=== PATIENT | male | born 1960 | race Caucasian/White ===

== ENCOUNTER 2018-12-30 11:54 | Emergency (ER) | payer BC, OTHER ==
[2018-12-30] MEDS ORDERED: Sodium Chloride 0.9% 10 ML Syringe FLUSH PRN (12:16)
--- NOTE | 2018-12-30 12:39 | EDM.PDOC ---
ED HPI GENERAL MEDICAL PROBLEM - General Chief Complaint: Abdominal Pain Stated Complaint: BAD ABDOMINAL PAIN [id number] Time Seen by Provider: 12/30/18 12:25 Source of Information: Reports: Patient, RN, RN Notes Reviewed History Limitations: Reports: No Limitations - History of Present Illness INITIAL COMMENTS - FREE TEXT/NARRATIVE: Pt to ER with c/o abdominal pain. Patient states the pain began last night and has gotten worse today. Patient states the pain is an ache and it radiates into the back. Admits he still has his appendix. States he has had pancreatitis 5 years ago. Denies drinking alcohol or smoking. Denies N/V/D. Denies CP or SOB, fever or chills. States he has been on a keto diet and has had some constipation with that. Has not had a BM in 2 days. States he has lost 40 pounds since July. States yesterday he was fishing in a boat and it was windy, thinks he maybe over did it yesterday. States this morning he noticed a "lump" just under the umbilical. Patient denies ever having kidney stones or hernia in the past. States HTN and high cholesterol, denies any other health problems. Onset: Gradual Duration: Constant Location: Reports: Abdomen Quality: Reports: Ache Severity: Moderate Improves with: Reports: None Worsens with: Reports: None Associated Symptoms: Reports: No Other Symptoms Abdominal Pain Score (Numeric/FACES): 7 - Related Data Allergies Allergy/AdvReac Type Severity Reaction Status Date / Time Penicillins Allergy Hives Verified 12/30/18 12:07 Home Meds: Home Meds LORazepam [Ativan] 1 mg PO BID PRN 11/12/13 [History] Rosuvastatin [Crestor] 10 mg PO DAILY 12/30/18 [History] Past Medical History Cardiovascular History: Reports: High Cholesterol Psychiatric History: Reports: Anxiety Social & Family History - Tobacco Use Smoking Status *Q: Never Smoker - Caffeine Use Caffeine Use: Reports: Coffee - Recreational Drug Use Recreational Drug Use: No - Living Situation & Occupation Living situation: Reports: , with Family Occupation: Employed ED ROS GENERAL - Review of Systems Review Of Systems: ROS reveals no pertinent complaints other than HPI. ED EXAM, GI/ABD - Physical Exam Exam: See Below Exam Limited By: No Limitations General Appearance: Alert, WD/WN, No Apparent Distress Eyes: Bilateral: Normal Appearance, EOMI Ears: Normal External Exam, Hearing Grossly Normal Nose: Normal Inspection Throat/Mouth: Normal Inspection, Normal Voice, No Airway Compromise Head: Atraumatic, Normocephalic Neck: Normal Inspection, Supple, Non-Tender, Full Range of Motion Respiratory/Chest: No Respiratory Distress, Lungs Clear, Normal Breath Sounds, No Accessory Muscle Use, Chest Non-Tender Cardiovascular: Normal Peripheral Pulses, Regular Rate, Rhythm, No Edema, No Gallop, No JVD, No Murmur, No Rub GI/Abdominal Exam: Normal Bowel Sounds, Soft, Tender (RUQ, RLQ, umbilical), Hernia (umbilical) (Male) Exam: Deferred Rectal (Males) Exam: Deferred Back Exam: Normal Inspection, Full Range of Motion, CVA Tenderness (R) Extremities: Normal Inspection, Normal Range of Motion, Non-Tender, Normal Capillary Refill, No Pedal Edema Neurological: Alert, Oriented, CN II-XII Intact, Normal Cognition, Normal Gait, Normal Reflexes, No Motor/Sensory Deficits Psychiatric: Normal Affect, Normal Mood Skin Exam: Warm, Dry, Intact, Normal Color, No Rash Lymphatic: No Adenopathy Course - Vital Signs Last Recorded V/S: Last Vital Signs Temp 97.4 F 12/30/18 15:16 Pulse 61 12/30/18 15:16 Resp 16 12/30/18 15:16 BP 119/64 12/30/18 15:16 Pulse Ox 100 12/30/18 15:16 - Orders/Labs/Meds Orders: Active Orders 24 hr Category Date Time Status Peripheral IV Care [RC] . DIRECTED Care 12/30/18 12:17 Active Abdomen Pelvis w Cont [CT] Urgent Exams 12/30/18 13:21 Taken Peripheral IV Insertion Adult [OM.PC] Stat Oth 12/30/18 12:16 Ordered Labs: Laboratory Tests 12/30/18 12/30/18 12/30/18 Range/Units 12:19 12:19 13:07 WBC 5.6 (5.0-10.0) 10^3/uL RBC 4.46 L (4.6-6.2) 10^6/uL Hgb 13.5 L (14.0-18.0) g/dL Hct 39.0 L (40.0-54.0) % MCV 87.4 (80-100) fL MCH 30.3 (27.0-34.0) pg MCHC 34.6 (33.0-35.0) g/dL Plt Count 245 (150-450) 10^3/uL Neut % (Auto) 61.4 (42.2-75.2) % Lymph % (Auto) 27.6 (20.5-50.1) % [place] % (Auto) 9.0 H (2-8) % Eos % (Auto) 1.8 (1.0-3.0) % Baso % (Auto) 0.2 (0.0-1.0) % Sodium 137 (135-145) mmol/L Potassium 3.6 (3.6-5.0) mmol/L Chloride 103 (101-111) mmol/L Carbon Dioxide 23.0 (21.0-31.0) mmol/L Anion Gap 14.6 BUN 19 H (7-18) mg/dL Creatinine 0.9 (0.6-1.3) mg/dL Est Cr Clr Drug Dosing 96.45 mL/min Estimated GFR (MDRD) > 60 BUN/Creatinine Ratio 21.11 Glucose 114 H (74-105) mg/dL Calcium 9.2 (8.4-10.2) mg/dl Total Bilirubin 0.8 (0.2-1.0) mg/dL AST 22 (10-42) IU/L ALT 29 (10-60) IU/L Alkaline Phosphatase 64 (42-121) IU/L Total Protein 7.0 (6.7-8.2) g/dl Albumin 4.3 (3.2-5.5) g/dl Globulin 2.7 Albumin/Globulin Ratio 1.59 Amylase 36 (28-100) U/L Lipase 26 (22-51) U/L Urine Color (YELLOW) Urine Appearance (CLEAR) Urine pH (5.0-9.0) Ur Specific [place] (1.005-1.030) Urine Protein (NEGATIVE) Urine Glucose (UA) (NEGATIVE) Urine Ketones (NEGATIVE) Urine Occult Blood (NEGATIVE) Urine Nitrite (NEGATIVE) Urine Bilirubin (NEGATIVE) Urine Urobilinogen (0.2-1.0) mg/dL Ur Leukocyte Esterase (NEGATIVE) Urine Opiates Screen Negative (NEGATIVE) Ur Oxycodone Screen Negative (NEGATIVE) Urine Methadone Screen Negative (NEGATIVE) Ur Barbiturates Screen Negative (NEGATIVE) U Tricyclic Antidepress Negative (NEGATIVE) Ur Phencyclidine Scrn Negative (NEGATIVE) Ur Amphetamine Screen Negative (NEGATIVE) U Methamphetamines Scrn Negative (NEGATIVE) Urine MDMA Screen Negative (NEGATIVE) U Benzodiazepines Scrn Positive H (NEGATIVE) Urine Cocaine Screen Negative (NEGATIVE) U Marijuana (THC) Screen Negative (NEGATIVE) Ethyl Alcohol < 5 mg/dL 12/30/18 Range/Units 13:07 WBC (5.0-10.0) 10^3/uL RBC (4.6-6.2) 10^6/uL Hgb (14.0-18.0) g/dL Hct (40.0-54.0) % MCV (80-100) fL MCH (27.0-34.0) pg MCHC (33.0-35.0) g/dL Plt Count (150-450) 10^3/uL Neut % (Auto) (42.2-75.2) % Lymph % (Auto) (20.5-50.1) % [place] % (Auto) (2-8) % Eos % (Auto) (1.0-3.0) % Baso % (Auto) (0.0-1.0) % Sodium (135-145) mmol/L Potassium (3.6-5.0) mmol/L Chloride (101-111) mmol/L Carbon Dioxide (21.0-31.0) mmol/L Anion Gap BUN (7-18) mg/dL Creatinine (0.6-1.3) mg/dL Est Cr Clr Drug Dosing mL/min Estimated GFR (MDRD) BUN/Creatinine Ratio Glucose (74-105) mg/dL Calcium (8.4-10.2) mg/dl Total Bilirubin (0.2-1.0) mg/dL AST (10-42) IU/L ALT (10-60) IU/L Alkaline Phosphatase (42-121) IU/L Total Protein (6.7-8.2) g/dl Albumin (3.2-5.5) g/dl Globulin Albumin/Globulin Ratio Amylase (28-100) U/L Lipase (22-51) U/L Urine Color Yellow (YELLOW) Urine Appearance Clear (CLEAR) Urine pH 6.0 (5.0-9.0) Ur Specific [place] 1.010 (1.005-1.030) Urine Protein Negative (NEGATIVE) Urine Glucose (UA) Negative (NEGATIVE) Urine Ketones Negative (NEGATIVE) Urine Occult Blood Negative (NEGATIVE) Urine Nitrite Negative (NEGATIVE) Urine Bilirubin Negative (NEGATIVE) Urine Urobilinogen 0.2 (0.2-1.0) mg/dL Ur Leukocyte Esterase Negative (NEGATIVE) Urine Opiates Screen (NEGATIVE) Ur Oxycodone Screen (NEGATIVE) Urine Methadone Screen (NEGATIVE) Ur Barbiturates Screen (NEGATIVE) U Tricyclic Antidepress (NEGATIVE) Ur Phencyclidine Scrn (NEGATIVE) Ur Amphetamine Screen (NEGATIVE) U Methamphetamines Scrn (NEGATIVE) Urine MDMA Screen (NEGATIVE) U Benzodiazepines Scrn (NEGATIVE) Urine Cocaine Screen (NEGATIVE) U Marijuana (THC) Screen (NEGATIVE) Ethyl Alcohol mg/dL Meds: Medications Discontinued Medications Generic Name Dose Route Start Last Admin Trade Name Freq PRN Reason Stop Dose Admin Iopamidol 75 ml 12/30/18 12:57 12/30/18 14:02 Isovue-300 (61%) IVPUSH 12/30/18 12:58 75 ml ONETIME ONE Administration Sodium Chloride 10 ml 12/30/18 12:16 12/30/18 12:21 Saline Flush FLUSH 10 ml ASDIRECTED PRN Administration Keep Vein Open - Radiology Interpretation Free Text/Narrative:: Abd/Pelvis CT with contrast: FINDINGS: Lungs: Atelectatic changes and within lung bases. ABDOMEN: Liver: The liver is normal. Gallbladder and bile ducts: The gallbladder is normal. Pancreas: The pancreas is normal. Spleen: The spleen is normal. Adrenals: Normal. No mass. Kidneys and ureters: There is mild right hydronephrosis and right hydroureter present. No definite calcification within the urinary tract. Mild atrophy left kidney is present. Stomach and bowel: Normal. No obstruction. No mucosal thickening. Appendix: No evidence of appendicitis. PELVIS: Bladder: The bladder is normal. Reproductive: The prostate demonstrates mild nonspecific enlargement. The seminal vesicles are normal. ABDOMEN and PELVIS: Intraperitoneal space: No significant fluid collection. Bones/joints: The lumbar spine demonstrates mild degenerative changes at multiple levels. Soft tissues: Fat filled umbilical hernia. Vasculature: The vasculature demonstrates diffuse mild atherosclerotic calcification. Lymph nodes: There are multiple nonspecific nonpathologic but prominent lymph nodes in the mesentery. There are no mesenteric lymph nodes of pathologic dimensions. IMPRESSION: 1. There is mild right hydronephrosis and right hydroureter present. No definite calcification within the urinary tract. 2. Fat filled umbilical hernia. Thank you for allowing us to participate in the care of your patient. Dictated and Authenticated by: Bebo Haro DO 12/30/2018 2:50 PM Central Time ([place] & [place]) See rad report Departure - Departure Time of Disposition: 15:24 Disposition: Home, Self-Care 01 Condition: Fair Clinical Impression: Hydroureter Umbilical hernia Qualifiers: Obstruction and gangrene presence: without obstruction or gangrene Qualified Code(s): K42.9 - Umbilical hernia without obstruction or gangrene Hydronephrosis Qualifiers: Hydronephrosis type: unspecified Qualified Code(s): N13.30 - Unspecified hydronephrosis - Discharge Information *PRESCRIPTION DRUG MONITORING PROGRAM REVIEWED*: No *COPY OF PRESCRIPTION DRUG MONITORING REPORT IN PATIENT KELECHI: No Instructions: Umbilical Hernia, Adult, Abdominal Pain, Adult, [id number], Hydronephrosis, Umbilical Herniorrhaphy Forms: ED Department Discharge Additional Instructions: Appointment with Dr. Lester on WednesdayJanuary 09 at 11:30am Drink a lot of water Follow up with your primary care facility May use Tylenol and/or Ibuprofen as directed for pain - My Orders Last 24 Hours: My Active Orders 12/30/18 12:16 Peripheral IV Insertion Adult [OM.PC] Stat 12/30/18 12:17 Peripheral IV Care [RC] . DIRECTED 12/30/18 13:21 Abdomen Pelvis w Cont [CT] Urgent - Assessment/Plan Last 24 Hours: My Active Orders 12/30/18 12:16 Peripheral IV Insertion Adult [OM.PC] Stat 12/30/18 12:17 Peripheral IV Care [RC] . DIRECTED 12/30/18 13:21 Abdomen Pelvis w Cont [CT] Urgent
[2018-12-30 12:43] LABS: ANION GAP 14.6; CHLORIDE,CL 103 mmol/L (101-111); SODIUM,NA 137 mmol/L (135-145)
[2018-12-30] MEDS ORDERED: Iopamidol 612 MG/ML 75 ML Bottle IVPUSH ONE (12:57)
== END 2018-12-30 15:24 | disposition home or self-care (01) ==
LOC: DL.ED 11:54
DX: N13.2 Hydronephrosis with renal and ureteral calculous obstruction (principal); K42.9 Umbilical hernia without obstruction or gangrene; F41.9 Anxiety disorder, unspecified; E78.00 Pure hypercholesterolemia, unspecified; Z79.899 Other long term (current) drug therapy; Z88.0 Allergy status to penicillin
CPT/HCPCS: 36415; 74177; 80053; 80305; 81003; 82150; 83690; 85025; 99284; G0480; Q9967

== ENCOUNTER 2020-12-03 19:53 | Emergency (ER) | payer OTHER ==
[2020-12-03] MEDS ORDERED: Acetaminophen/HYDROcodone 325-10 MG Tab PO ONE (19:54)
--- NOTE | 2020-12-03 20:24 | EDM.PDOC ---
ED HPI GENERAL MEDICAL PROBLEM - General Stated Complaint: PULLED SOMETHING IN SHOULDER Time Seen by Provider: 12/03/20 20:15 Source of Information: Reports: Patient History Limitations: Reports: No Limitations - History of Present Illness INITIAL COMMENTS - FREE TEXT/NARRATIVE: This 60 yo male patient reports to the ED with right shoulder pain. The patient reports he was moving a heavy couch when he tripped on a step and fell onto his right shoulder. The patient reports he has had increased pain since the incident. The patient rates his pain at a 7/10 at this time. The patient reports the fall was about 2 hours prior to his arrival in the ED. The patient reports he did have a previous injury to his right shoulder and has noticed decreased range of motion since that injury. The patient has not followed-up with an MRI of the shoulder since the initial injury. 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 Right Shoulder Pain Score (Numeric/FACES): 7 - Related Data Allergies Allergy/AdvReac Type Severity Reaction Status Date / Time Penicillins Allergy Hives Verified 12/03/20 20:06 Home Meds: Home Meds LORazepam [Ativan] 1 mg PO BID PRN 11/12/13 [History] Rosuvastatin [Crestor] 10 mg PO DAILY 12/30/18 [History] Past Medical History - Past Health History Medical/Surgical History: Denies Medical/Surgical History HEENT History: Reports: None Cardiovascular History: Reports: High Cholesterol Respiratory History: Reports: None Gastrointestinal History: Reports: Pancreatitis Genitourinary History: Reports: None Musculoskeletal History: Reports: None Neurological History: Reports: Vertigo Other Neuro History: RECENTLY HOSPITALIZED FOR V[facility]IGO IN [place] Psychiatric History: Reports: Anxiety Endocrine/Metabolic History: Reports: None Hematologic History: Reports: None Immunologic History: Reports: None Oncologic (Cancer) History: Reports: None Dermatologic History: Reports: None - Infectious Disease History Infectious Disease History: Reports: Chicken Pox - Past Surgical History Head Surgeries/Procedures: Reports: None HEENT Surgical History: Reports: None Cardiovascular Surgical History: Reports: None Respiratory Surgical History: Reports: None GI Surgical History: Reports: Colonoscopy, EGD, Hernia Repair/Other Other GI Surgeries/Procedures: umbilical Male Surgical History: Reports: None Social & Family History - Family History Family Medical History: No Pertinent Family History - Tobacco Use Tobacco Use Status *Q: Never Tobacco User Second Hand Smoke Exposure: No - Caffeine Use Caffeine Use: Reports: None Caffeine Use Comment: 2 CUPS DAILY - Recreational Drug Use Recreational Drug Use: No - Living Situation & Occupation Living situation: Reports: , with Family Occupation: Employed Review of Systems - Review of Systems Review Of Systems: Comprehensive ROS is negative, except as noted in HPI. ED EXAM, GENERAL - Physical Exam Exam: See Below Exam Limited By: No Limitations General Appearance: Alert, WD/WN, Moderate Distress Eye Exam: Bilateral Eye: EOMI, Normal Inspection, PERRL Ears: Normal External Exam, Normal Canal, Hearing Grossly Normal, Normal TMs Nose: Normal Inspection, Normal Mucosa, No Blood Throat/Mouth: Normal Inspection, Normal Lips, Normal Teeth, Normal Gums, Normal Oropharynx, Normal Voice, No Airway Compromise Head: Atraumatic, Normocephalic Neck: Normal Inspection, Supple, Non-Tender, Full Range of Motion Respiratory/Chest: No Respiratory Distress, Lungs Clear, Normal Breath Sounds, No Accessory Muscle Use, Chest Non-Tender Cardiovascular: Normal Peripheral Pulses, Regular Rate, Rhythm, No Edema, No Gallop, No JVD, No Murmur, No Rub GI/Abdominal: Normal Bowel Sounds, Soft, Non-Tender, No Organomegaly, No Distention, No Abnormal Bruit, No Mass (Male) Exam: Deferred Rectal (Males) Exam: Deferred Back Exam: Normal Inspection, Full Range of Motion, NT Extremities: Arm Pain (Right shoulder), Limited Range of Motion Neurological: Alert, Oriented, CN II-XII Intact, Normal Cognition, Normal Gait, Normal Reflexes, No Motor/Sensory Deficits Psychiatric: Normal Affect, Normal Mood Skin Exam: Warm, Dry, Intact, Normal Color, No Rash Lymphatic: No Adenopathy Course - Vital Signs Last Recorded V/S: Last Vital Signs Temp 36.6 C 12/03/20 20:07 Pulse 65 12/03/20 20:07 Resp 16 12/03/20 20:07 BP 142/81 H 12/03/20 20:07 Pulse Ox 100 12/03/20 20:07 Departure - Departure Time of Disposition: 20:43 Disposition: Home, Self-Care 01 Condition: Fair Clinical Impression: Right shoulder strain Qualifiers: Encounter type: initial encounter Qualified Code(s): S46.911A - Strain of unspecified muscle, fascia and tendon at shoulder and upper arm level, right arm, initial encounter - Discharge Information *PRESCRIPTION DRUG MONITORING PROGRAM REVIEWED*: Not Applicable *COPY OF PRESCRIPTION DRUG MONITORING REPORT IN PATIENT KELECHI: Not Applicable Instructions: Shoulder Pain, [id number], Muscle Strain, [id number] Forms: ED Department Discharge Care Plan Goals: The patient was advised of the examination and x-ray results during the visit. The patient's right arm was placed in a sling during the visit. The patient was discharged with a script for [place] (5/325) #10 to take 1 by mouth every 6 hours as needed. The patient was also discharged with [place] (10/325) #2 to take 1 by mouth every 6 hours as needed for pain. The patient was encouraged to rest and ice the right shoulder. The patient should follow-up with his primary care facility within the next week for continued evaluation (MRI) and treatment. If the patient has any additional symptoms or concerns, the patient should either return to the emergency department or visit his primary care facility. Sepsis Event Note (ED) - Evaluation Sepsis Screening Result: No Definite Risk - Focused Exam Vital Signs: Vital Signs Temp Pulse Resp BP Pulse Ox 12/03/20 20:07 36.6 C 65 16 142/81 H 100
--- NOTE | 2020-12-03 20:32 | CR ---
PROCEDURE INFORMATION: Exam: XR Right Shoulder Exam date and time: 12/03/2020 8:05 PM Age: 60 years old Clinical indication: Pain; Shoulder; Right; Additional info: Right shoulder pain TECHNIQUE: Imaging protocol: XR Right shoulder. Views: 2 or more views. Total images: 3 COMPARISON: No relevant prior studies available. FINDINGS: Bones/joints: Minimal spurring at the acromioclavicular joint. Glenohumeral joint is intact. There may be some narrowing of the glenohumeral joint. No acute fracture. Soft tissues: Normal. IMPRESSION: 1. No acute process. 2. Minimal degenerative changes.
[2020-12-03] MEDS ORDERED: Acetaminophen/HYDROcodone 325-10 MG Tab ONE (20:43)
== END 2020-12-03 20:52 | disposition home or self-care (01) ==
LOC: DL.ED 19:53
DX: S46.911A Strain of unspecified muscle, fascia and tendon at shoulder and upper arm level, right arm, initial encounter (principal); E78.00 Pure hypercholesterolemia, unspecified; Z88.0 Allergy status to penicillin; Z79.899 Other long term (current) drug therapy; W01.0XXA Fall on same level from slipping, tripping and stumbling without subsequent striking against object, initial encounter
CPT/HCPCS: 73030-RT; 99282; 99283; A9270-GY

== ENCOUNTER 2024-12-07 11:11 | Emergency (ER) | payer BC, OTHER ==
[2024-12-07] MEDS ORDERED: Sodium Chloride 0.9% 10 ML Syringe FLUSH PRN (11:20)
[2024-12-07 11:41] LABS: BASOPHILS PERCENT AUTO 0.1 % (0.0-1.0); HEMATOCRIT 42.1 % (40.0-54.0); HEMOGLOBIN 14.1 g/dL (14.0-18.0); LYMPHOCYTES PERCENT AUTO 32.7 % (20.5-50.1); MEAN CORPUSCULAR HEMOGLOBIN 30.3 pg (27.0-34.0); MEAN CORPUSCULAR HGB CONC 33.5 g/dL (33.0-35.0); MEAN CORPUSCULAR VOLUME 90.3 fL (80-100); MONOCYTES PERCENT AUTO 8.9 % (2-8); NEUTROPHILS PERCENT AUTO 57.3 % (42.2-75.2); PLATELET COUNT,PLT 253 10^3/uL (150-450); RED BLOOD CELL COUNT 4.66 10^6/uL (4.6-6.2); WHITE BLOOD CELL COUNT,WBC 7.6 10^3/uL (5.0-10.0)
[2024-12-07 12:07] LABS: A/G RATIO 1.2; ALBUMIN 4.2 g/dL (3.4-5.0); ANION GAP 10.7 mEq/L (7-13); BILIRUBIN TOTAL 0.5 mg/dL (0.2-1.0); BUN/CREATININE RATIO 14.6 (No establ ref range); CREATININE 1.03 mg/dL (0.70-1.30); EST CRCL DRUG DOSING (CG) 75.8 mL/min; MAGNESIUM 1.7 mg/dL (1.8-2.4); PHOSPHORUS 3.2 mg/dL (2.6-4.7); POTASSIUM,K 3.7 mmol/L (3.5-5.1); PROTEIN TOTAL,TP 7.6 g/dL (6.4-8.2); T4 FREE 1.11 ng/dL (0.76-1.46); TSH ULTRASENSITIVE 1.48 uIU/mL (0.36-3.74)
== END 2024-12-07 12:30 | disposition home or self-care (01) ==
LOC: DL.ED 11:11
DX: R00.2 Palpitations (principal); E78.00 Pure hypercholesterolemia, unspecified; Z88.0 Allergy status to penicillin; Z79.899 Other long term (current) drug therapy
CPT/HCPCS: 36415; 80053; 83735; 84100; 84439; 84443; 84484; 85025; 93005; 99285

== ENCOUNTER 2025-03-29 08:53 | Emergency (ER) | payer BC ==
[2025-03-29] MEDS: Ketorolac 30 MG/ML SDV IM ONE (09:22)
== END 2025-03-29 09:40 | disposition home or self-care (01) ==
LOC: DL.ED 08:53
DX: U07.1 COVID-19 (principal); E78.00 Pure hypercholesterolemia, unspecified; R51.9 Headache, unspecified; Z88.0 Allergy status to penicillin; Z79.899 Other long term (current) drug therapy
CPT/HCPCS: 87428-QW; 96372; 99283; 99284; J1885; J8540